=== PATIENT | female | born 1965 | race American Indian/Alaskan Native ===

== ENCOUNTER 2017-09-20 10:34 | Emergency (ER) | payer BC ==
[2017-09-20] MEDS ORDERED: ASPIRIN PO ONE (10:54)
[2017-09-20 12:07] LABS: Basophils % (Auto) 0.3 % (0.0-1.8); Eosinophils # (Auto) 0.1 K/mm3 (0.0-0.4); Eosinophils % (Auto) 1.8 % (0.0-4.3); Hematocrit 40.6 % (30.3-42.9); Hemoglobin 13.5 gm/dl (10.1-14.3); Lymphocytes # (Auto) 1.4 K/mm3 (1.2-5.4); Lymphocytes % (Auto) 38.9 % (13.4-35.0); Mean Corpuscular HGB Conc 33 % (30-34); Mean Corpuscular Hemoglobin 31 pg (28-32); Mean Corpuscular Volume 93 fl (79-97); Monocytes # (Auto) 0.4 K/mm3 (0.0-0.8); Monocytes % (Auto) 11.2 % (0.0-7.3); Platelet Count 280 K/mm3 (140-440); Red Blood Count 4.39 M/mm3 (3.65-5.03); Red Cell Distribution Width 14.1 % (13.2-15.2)
--- NOTE | 2017-09-20 12:11 | XRay Report ---
Chest 2 views: History: Shortness of breath, chest pain. Findings: Normal cardiomediastinal silhouette the trachea is midline. No consolidation, pneumothorax or pleural effusion. Impression: No acute cardiopulmonary findings
[2017-09-20 12:18] LABS: BUN/Creatinine Ratio 13; Blood Urea Nitrogen 13 mg/dL (7-17); Calcium 10.1 mg/dL (8.4-10.2); Hemolysis Index 6
[2017-09-20] MEDS ORDERED: NORCO 5/325 PO ONE (17:00)
--- NOTE | 2017-09-20 17:06 | Emergency Department Report ---
HPI - General Chief Complaint: Chest Pain Time Seen by Provider: 09/20/17 16:47 - HPI HPI: Room 25 The patient is a 51-year-old female presenting with a chief complaint jaw and left shoulder pain. The patient states since yesterday she's had a constant pain in her left jaw and left shoulder described as an aching pressure type of pain. The patient states she's also had tingling in her left upper extremity. Patient denies actual chest pain, shortness of breath nausea/vomiting or diaphoresis. The patient currently gives her pain score of 4/10. The patient states she's never had a stress test or cardiac catheterization Location: [See above] Duration: [See above] Quality: [See above] Severity: [See above] Modifying factors: [see above] Context: [see above] Mode of transportation: [not driving] ED Past Medical Hx - Past Medical History Hx Hypertension: Yes Hx Diabetes: No (prediabetes) - Surgical History Past Surgical History?: No Additional Surgical History: - Family History Family history: no significant - Social History Smoking Status: Never Smoker Substance Use Type: None (denies illicit drug use) - Medications Home Medications: Home Medications Medication Instructions Recorded Confirmed Last Taken Type Hydrochlorothiazide [HCTZ] 25 mg PO QDAY 09/20/17 09/20/17 Unknown History Spironolactone [Aldactone] 25 mg PO QDAY 09/20/17 09/20/17 Unknown History ED Review of Systems ROS: Stated complaint: LEFT SIDE/BACK PAIN Other details as noted in HPI Constitutional: denies: diaphoresis ENT: other (left jaw pain) Respiratory: denies: shortness of breath Cardiovascular: denies: chest pain Gastrointestinal: denies: nausea, vomiting Musculoskeletal: myalgia Neurological: paresthesias Physical Exam - Physical Exam Vital Signs: Vital Signs 09/20/17 10:47 Temperature 98.7 F Pulse Rate 87 Blood Pressure 163/107 O2 Sat by Pulse 100 Oximetry Physical Exam: GENERAL: The patient is well-developed well-nourished female sitting on stretcher not appearing to be in acute distress. [] HEENT: Normocephalic. Atraumatic. Extraocular motions are intact. Patient has moist mucous membranes. NECK: Supple. No meningitic signs are noted. Trachea midline CHEST/LUNGS: Clear to auscultation. There is no respiratory distress noted. HEART/CARDIOVASCULAR: Regular. There is no tachycardia. There is no gallop rub or murmur. ABDOMEN: Abdomen is soft, nontender. Patient has normal bowel sounds. There is no abdominal distention. SKIN: There is no rash. There is no edema. There is no diaphoresis. NEURO: The patient is awake, alert, and oriented. The patient is cooperative. The patient has no focal neurologic deficits. The patient has normal speech. Cranial nerves II through XII grossly intact, no drift. Normal sensation throughout. MUSCULOSKELETAL: There is no evidence of acute injury. ED Course Vital Signs 09/20/17 10:47 Temperature 98.7 F Pulse Rate 87 Blood Pressure 163/107 O2 Sat by Pulse 100 Oximetry ED Medical Decision Making - Lab Data Result diagrams: 09/20/17 11:34 09/20/17 11:34 Laboratory Tests 09/20/17 09/20/17 09/20/17 11:34 11:34 13:52 WBC 3.6 L RBC 4.39 Hgb 13.5 Hct 40.6 MCV 93 MCH 31 MCHC 33 RDW 14.1 Plt Count 280 Lymph % (Auto) 38.9 H [place] % (Auto) 11.2 H Eos % (Auto) 1.8 Baso % (Auto) 0.3 Lymph # 1.4 [place] # 0.4 Eos # 0.1 Baso # 0.0 Seg Neutrophils % 47.8 Seg Neutrophils # 1.7 L Sodium 138 Potassium 3.7 Chloride 97.8 L Carbon Dioxide 32 H Anion Gap 12 BUN 13 Creatinine 1.0 Estimated GFR 59 BUN/Creatinine Ratio 13 Glucose 101 H Calcium 10.1 Troponin T < 0.010 < 0.010 - EKG Data -: EKG Interpreted by Me EKG shows normal: sinus rhythm Rate: normal - EKG Data When compared to previous EKG there are: previous EKG unavailable Interpretation: other (no ischemic changes seen) - Radiology Data Radiology results: report reviewed (chest x-ray, CT head), image reviewed ( chest x-ray, CT head) interpreted by me: Chest x-ray-no focal infiltrate, no pneumothorax [facility] [address] [place] [address] Cat Scan Report Signed Patient: PALAK PERDOMO MR#: [id number] : 1965 Acct:[id number] Age/Sex: 51 / F ADM Date: 09/20/17 Loc: ED Attending Dr: Ordering Physician: SYLVIE ABREU MD Date of Service: 09/20/17 Procedure(s): CT head/brain wo con Accession Number(s): [id number] cc: SYLVIE ABREU MD FINAL REPORT EXAM: CT HEAD/BRAIN WO CON HISTORY: left arm numbness TECHNIQUE: CT of the head was performed without intravenous contrast. PRIORS: None. FINDINGS: The ventricles are normal in shape and position. The ventricles are nondilated. No intracranial hemorrhage, mass, mass effect, midline shift or evidence of acute ischemic infarct. The basilar cisterns are patent. The paranasal sinuses are clear. The extracranial soft tissues demonstrate no abnormality. The calvarium is intact. The orbits are intact. The mastoid air cells are clear. IMPRESSION: No acute intracranial abnormality. Transcribed By: MG Dictated By: ZAHEER JOHN MD Electronically Authenticated By: ZAHEER JOHN MD Signed Date/Time: 09/20/171739 DD/ 39 TD/TT: 09/20/171739 - Differential Diagnosis ACS, TIA, rotator cuff injury Critical care attestation.: If time is entered above; I have spent that time in minutes in the direct care of this critically ill patient, excluding procedure time. ED Disposition Clinical Impression: Equivalent angina, Paresthesia of left upper extremity Disposition: OP ADMIT IP TO THIS HOSP Is pt being admited?: Yes Does the pt Need Aspirin: Yes Condition: Fair Instructions: Angina (ED) Referrals: PRIMARY CARE, [Primary Care Provider] - 3-5 Days Time of Disposition: 18:00 (hospitalist notified (Dr. Felton))
--- NOTE | 2017-09-20 17:45 | Cat Scan Report ---
FINAL REPORT EXAM: CT HEAD/BRAIN WO CON HISTORY: left arm numbness TECHNIQUE: CT of the head was performed without intravenous contrast. PRIORS: None. FINDINGS: The ventricles are normal in shape and position. The ventricles are nondilated. No intracranial hemorrhage, mass, mass effect, midline shift or evidence of acute ischemic infarct. The basilar cisterns are patent. The paranasal sinuses are clear. The extracranial soft tissues demonstrate no abnormality. The calvarium is intact. The orbits are intact. The mastoid air cells are clear. IMPRESSION: No acute intracranial abnormality.
--- NOTE | 2017-09-20 23:07 | Event Note ---
Date: 09/20/17 Patient complaints of L shoulder and L jaw pain whoch has resolved while in ED O/E Good ROM at L shoulder Subscapular tenderness present labs WNL Hx of HTN Discharge diagnosis Scapular Bursitis Tx Meloxicam 15 mg PO qd x 10 days
[2017-09-21 00:14] VITALS: BP 116/77
== END 2017-09-21 00:17 | disposition admitted as inpatient to this hospital (09) ==
LOC: ED 10:34
DX: I20.9 Angina pectoris, unspecified (principal); R20.2 Paresthesia of skin; I10 Essential (primary) hypertension
CPT/HCPCS: 36415; 70450; 71046; 80048; 84484; 85025; 93005; 93010